=== PATIENT | male | born 1960 | race Caucasian/White ===

== ENCOUNTER → 2021-04-25 08:02 | Outpatient (CLI) | payer BC, SELFPAY ==
--- NOTE | 2021-04-25 | DI.US.S_ITS ---
PROCEDURE: US ABD AORTA ANEURYSM SCREEN INDICATIONS: SCREENING TECHNIQUE: Real time scanning was performed of the aorta and iliac arteries, with image documentation. COMPARISON: None. FINDINGS: Aorta: Proximal aortic diameter measures 2.5 cm. Mid-aorta measures 2.1 cm. Distal aortic diameter is 2.0 cm. Iliac arteries: Right common iliac artery measures 1.4 cm. Left common iliac artery measures 1.4 cm. IMPRESSION: No aneurysmal dilation. Dictated by: Hillary Yang M.D. on 04/25/2021 at 12:45 Approved by: Hillary Yang M.D. on 04/25/2021 at 12:46
== END ==
PROVIDERS: PCP Family Medicine; Referring Provider Family Medicine; Visit Provider Family Medicine
DX: Z13.6 Encounter for screening for cardiovascular disorders (principal)
CPT/HCPCS: 76706

== ENCOUNTER → 2021-05-11 10:34 | Outpatient (CLI) | payer BC, SELFPAY ==
[2021-05-11 14:43] LABS: COVID19 -Nasal RAPID Negative (Negative)
== END ==
PROVIDERS: PCP Family Medicine; Visit Provider Specialist
DX: Z01.812 Encounter for preprocedural laboratory examination (principal); Z20.822 Contact with and (suspected) exposure to COVID-19
CPT/HCPCS: 87635; C9803

== ENCOUNTER 2022-09-15 21:16 | Emergency (ER) | payer SELFPAY ==
[2022-09-15 21:21] VITALS: BP 118/68; PULSE 86; RESP 18; TEMP 36.6; O2SAT 98
--- NOTE | 2022-09-15 21:28 | PC.NURSE ---
Pt is drunk, refusing to answer questions, told RN to shut up. Allowed VS. Pt is currently sleeping.
[2022-09-15 22:43] VITALS: PULSE 67; O2SAT 93
[2022-09-15 23:00] VITALS: PULSE 65; RESP 15; O2SAT 90
[2022-09-15 23:30] VITALS: PULSE 65; RESP 16; O2SAT 95
--- NOTE | 2022-09-16 01:27 | ED.FALL ---
HPI - Fall General Chief Complaint: Fall Stated Complaint: Fall - ETOH Time Seen by Provider: 09/16/22 01:26 Source: EMS Mode of arrival: EMS Limitations: no limitations History of Present Illness HPI Narrative: This is a 62-year-old male initially seen for fall while drinking. Patient was at 1 of local clubs, he reportedly tripped over another individual and fell. Does not sound like there was an altercation. Patient initially was not very cooperative slept for several hours. Is now alert, awake and appropriate. Patient states he is history of hypertension, denies other medical issues. States that he drinks too much alcohol. Denies any recent major surgeries. No known drug allergies. Patient has not abrasion on his finger he is unsure of his tetanus status but defers being updated today. Related Data Home Medications Medication Instructions Recorded Confirmed [CENTRUM SILVER] 1 tab PO QDAY ##0 10/23/12 lisinopril 10 mg tablet 10 mg PO QDAY ##0 10/23/12 Previous Rx's Medication Instructions Recorded sodium,potassium,mag sulfates 17.5 See Rx Instructions PO .COMPLEX 08/31/22 gram-3.13 gram-1.6 gram oral soln #354 mL (Suprep Bowel Prep Kit) Allergies Allergy/AdvReac Type Severity Reaction Status Date / Time INGREDIENT: NO KNOWN - NO Allergy Unknown Uncoded 12/12/17 13:00 KNOWN DRUG ALLERGY Review of Systems Review of Systems ROS Unobtainable: All systems reviewed & are unremarkable except as noted in HPI and below Exam Narrative Exam Narrative: GEN: well nourished, well appearing male, patient initially was quite intoxicated with slurred speech. Not cooperative on arrival. On repeat examination patient is stating, able to ambulate safely, cooperates with exam HEENT: Atraumatic, pupils are equal round reactive to light, extraocular movements are intact, nares are clear, TMs are clear with no fluid, there is no conjunctival pallor. Throat is clear without any exudates, erythema, tonsillar enlargement or uvular deviation HEART: Regular rate and rhythm without murmur, clicks, rubs. No carotid bruits, pulses are equal in upper and lower extremities LUNGS:Lungs clear to auscultation, no wheezes, rales, crackles, chest moves symmetrically ABD:bowel sounds normal, soft, non-tender, no guarding, rebound, rigidity, no masses noted, no hepatosplenomegaly :No CVA tenderness BACK: No cervical, thoracic or lumbar vertebral point tenderness. Patient has normal range of motion. Patient's gait is normal. MSCL: Non-tender, no muscle atrophy, muscles strength 5/5 upper and lower extremities, full range of motion, normal gait NEURO:CN 2-12 intact, sensation normal SKIN: Patient has abrasion over the knuckle of the 5th digit on his left hand. No deformity. Full range of motion. No bony tenderness. Initial Vital Signs Initial Vital Signs: Vital Signs Temperature 97.8 F 09/15/22 21:21 Pulse Rate 86 09/15/22 21:21 Respiratory Rate 18 09/15/22 21:21 Blood Pressure 118/68 09/15/22 21:21 Pulse Oximetry 98 09/15/22 21:21 Oxygen Delivery Method 09/15/22 21:21 Course Vital Signs Vital signs: Vital Signs - 8 hr 09/15/22 21:21 09/15/22 22:43 09/15/22 23:00 Temperature 97.8 F Pulse Rate 86 67 65 Respiratory Rate 18 15 Blood Pressure 118/68 Pulse Oximetry 98 93 90 L Oxygen Delivery Method Room Air 09/15/22 23:30 Temperature Pulse Rate 65 Respiratory Rate 16 Blood Pressure Pulse Oximetry 95 Oxygen Delivery Method MDM - Fall MDM Narrative Medical decision making narrative: This is a 62-year-old male who presented with alcohol intoxication he has been monitored in the department for several hours now appears alert, much more sober and appropriate and is requesting discharge. Patient appears appropriate for discharge he defers tetanus immunization. He does have an abrasion on his finger but does not appear to have any fractures. Discharge Plan Departure Patient Disposition: Home Clinical Impression: Alcohol intoxication, Abrasion of finger Activity Restrictions/Additional Instructions: It is recommended that you your tetanus updated this can be performed within 72 hours of the abrasion on your finger. If you are interested in resources for alcohol abuse you can reach out to our social media project manager at [phone] for options. Wound Care: Keep wound(s) clean and dry. Wash daily with soap and water only. Do not use over the counter products (alcohol or peroxide)on the wounds unless instructed by a physician. If wound condition worsens (increased/expanding redness, developing fluid blisters, or worsening pain), either contact your doctor for an urgent re-assessment , or return to the Emergency Department. Return to the Emergency Department for any new or worsening symptoms. Return if fever greater than 100.4 Fahrenheit, increased swelling, increasing pain or worsening symptoms such as increased discharge or spreading redness. Prescriptions: No Action lisinopril 10 MG tablet 10 mg PO QDAY Qty: 0 [CENTRUM SILVER] 1 tab PO QDAY Qty: 0 sodium,potassium,mag sulfates [Suprep Bowel Prep Kit] 17.5-3.13-1.6 gram recon soln See Rx Instructions PO .COMPLEX Qty: 354 0RF Rx Instructions: Take as directed by Physician Referrals: Xiang Ken MD [Primary Care Provider] - Stand Alone Forms: Patient Portal/API
== END 2022-09-16 01:41 | disposition home or self-care (01) ==
PROVIDERS: Emergency Provider Emergency Medicine; PCP Family Medicine
DX: F10.129 Alcohol abuse with intoxication, unspecified (principal); S60.417A Abrasion of left little finger, initial encounter; W18.30XA Fall on same level, unspecified, initial encounter
CPT/HCPCS: 99281

== ENCOUNTER 2023-02-06 08:53 | Day surgery (SDC) | payer BC, SELFPAY ==
--- NOTE | 2023-02-06 | PATH_ITS ---
[facility] Accession Number: [id number] No. of containers..01 Tissue . 01 Material submitted: . colon - ASCENDING COLON POLYP . 01 Diagnosis: Ascending Colon, Polypectomy: Benign lymphoid aggregate. Additional levels were examined. Negative for dysplasia and malignancy. MRV 02/12/2023 1630 Local . 01 Electronically signed: . Mary Lynn MD, Pathologist NPI- [id number] . 01 Gross description: . ASCENDING COLON POLYP: Received in formalin is 1 fragment(s) of lynn, soft tissue measuring 0.3 x 0.2 x 0.2 cm submitted entirely in 1 cassette(s) /ANGIE 02/08/2023 2230 Local . 01 Pathologist provided ICD-10: K63.5 . 01 CPT . 656589 Specimen Comment: A courtesy copy of this report has been sent to [phone] Performed at: 01 [facility] [address] [place] [address] [address] [facility], [place], [place] [id number] MD Juan Manuel Doshi MD Phone: [phone]
[2023-02-06 09:10] VITALS: BP 124/83; PULSE 68; RESP 16; TEMP 36.1; O2SAT 98; BMI 33.0
[2023-02-06] MEDS: LACTATED RINGERS 1,000 ML 200 ML IV (09:15)
--- NOTE | 2023-02-06 09:41 | PM.HP.1 ---
History of Present Illness History of Present Illness Date Patient Seen: 02/06/23 Time Patient Seen: 09:42 Chief complaint: SDC Narrative: The patient presents for colorectal screening. Previous colonoscopy normal 10 years ago. No personal or family history of colon cancer. On further history denies any recent gastrointestinal symptoms. No nausea, vomiting, abdominal pain, loss of appetite, unexplained weight loss, change in bowel habits, or blood per rectum. [facility] Social History household members: spouse Smoking Status: Current some day smoker Meds Home Medications and Allergies Home Medications Medication Instructions Recorded Confirmed Type lisinopril 10 mg tablet 10 mg PO QDAY ##0 10/23/12 02/06/23 History Allergies Allergy/AdvReac Type Severity Reaction Status Date / Time No Known Drug Allergies Allergy Verified 02/06/23 09:09 Exam Vital Signs (past 8 hours): - 02/06/23 09:10 Temperature 97 F L Pulse Rate 68 Respiratory Rate 16 Blood Pressure 124/83 Pulse Oximetry 98 Oxygen Delivery Method Room Air Oxygen Delivery Method Room Air Narrative Exam Narrative: General adult man acute distress Abdomen soft nontender nondistended Extremities warm well perfused Assessment & Plan Assessment & Plan narrative: The patient requires colorectal screening and colonoscopy is recommended. Technical details were discussed. Risks, benefits, alternatives explained. Risks including but not limited to myocardial infarction, aspiration, bleeding, pain, missed lesion, incomplete examination, need for further radiographic studies, colonic perforation, and need for major abdominal surgery were discussed. All questions were answered to their satisfaction, and they are in agreement with this plan.
--- NOTE | 2023-02-06 09:43 | PM.OP.COLON ---
Operative Date/Time/Diagnoses Date of procedure: 02/06/23 Time of procedure: 09:43 Pre-op diagnosis: Colorectal screening Post-op diagnosis: other (Colonic polyp x1) Procedure & Clinicians Study performed: Colonoscopy and polypectomy Same procedure as scheduled: Yes Indications: Colorectal screening Surgeon: Carlos Kiran Procedure Notes Procedure in detail: The history and physical was performed/updated and the patient is ASA class is 2. The procedure was discussed in detail with the patient. Potential risks complications including infection, bleeding, missed diagnosis, perforation, need for surgery, and were explained. Their questions were answered and informed consent was obtained. Patient was brought to the procedure room and placed standard monitoring equipment. The patient's vital signs were monitored continuously throughout the entire procedure. Prior to starting time-out was performed. The patient was placed in the left lateral recumbent position. Procedural sedation was administered by anesthesia. Examination began with a thorough inspection of the perianal area there was no evidence of fissures, fistulae, external hemorrhoids or cutaneous malignancy. The colonoscopy scope was then placed into the anal canal and was advanced to the ascending colon. The ileocecal valve could be identified but I was unable to intubate the cecum despite multiple attempts at repositioning scope stiffener and external pressure. Within the ascending colon 1 polyp of 3 mm was removed with biopsy forceps. The remainder of the colon was notable for extensive wide mouth diverticulum. The patient tolerated the procedure well. They will be discharged once criteria are met. The prep was of good/excellent quality. The withdrawl time was 7 minutes. Specimen(s): other (Ascending colonic polyp) Impression: Colonic polyp x1 Post-procedure Plan for aftercare: Follow-up is dependent on pathology findings Disposition: same day surgery
[2023-02-06 10:07] VITALS: BP 102/65; PULSE 53; RESP 12; TEMP 36.4; O2SAT 93
[2023-02-06 10:13] VITALS: BP 92/60; PULSE 78; RESP 18; O2SAT 95
[2023-02-06 10:19] VITALS: BP 99/71; PULSE 62; RESP 16; TEMP 36.7; O2SAT 96
[2023-02-06 10:22] VITALS: BP 100/65; PULSE 60; RESP 16; O2SAT 96
== END 2023-02-06 10:31 | disposition home or self-care (01) ==
PROVIDERS: PCP Family Medicine; Referring Provider Surgery; Visit Provider Surgery
PROC: 0DJD8ZZ Inspection of Lower Intestinal Tract, Via Natural or Artificial Opening Endoscopic (ICD-10-PCS; CPT 45378; principal; 2023-02-06 10:00)
DX: Z12.11 Encounter for screening for malignant neoplasm of colon (principal); K57.30 Diverticulosis of large intestine without perforation or abscess without bleeding
CPT/HCPCS: 45380; J2704; J3010